=== PATIENT | female | born 1935 | race Hispanic/Latino ===

== ENCOUNTER 2019-02-01 08:09 | Outpatient (CLI) | payer MEDICARE, OTHER ==
[2019-02-01 09:04] LABS: Blood Urea Nitrogen 12 mg/dL (7-17)
--- NOTE | 2019-02-01 10:18 | Cat Scan Report ---
CT ABDOMEN AND PELVIS WITH CONTRAST INDICATION / CLINICAL INFORMATION: N28.89 RIGHT RENAL MASS. TECHNIQUE: Axial CT images were obtained through the abdomen and pelvis pre and post 100 cc Omnipaque 300 millig cornelius percent IV contrast. All CT scans at this location are performed using CT dose reduction for [place] by means of automated exposure control. COMPARISON: None available. FINDINGS: LOWER CHEST: No significant abnormality. LIVER: Several well-defined low density lesions are present in the liver largest measuring 3.4 cm, mo st consistent with cyst. GALLBLADDER: Previous cholecystectomy BILE DUCTS: No significant abnormality. PANCREAS: No significant abnormality. SPLEEN: No significant abnormality. ADRENALS: No significant abnormality. RIGHT KIDNEY and URETER: No significant abnormality. LEFT KIDNEY and URETER: No significant abnormality. STOMACH and SMALL BOWEL: No significant abnormality. COLON: Extensive diverticulosis of the sigmoid colon APPENDIX: Not identified PERITONEUM: No free fluid. No free air. No fluid collection. LYMPH NODES: No significant adenopathy. AORTA and ARTERIES: Atherosclerotic calcified plaque abdominal aorta is major branches IVC and VEINS: No significant abnormality. URINARY BLADDER: No significant abnormality. REPRODUCTIVE ORGANS: No significant abnormality. ADDITIONAL FINDINGS: None. SKELETAL SYSTEM: Diffuse degenerative changes lumbar spine IMPRESSION: 1. No evidence of renal mass 2. Hepatic cyst 3. Degenerative changes lumbar spine 4. Diverticulosis sigmoid colon Signer Name: Krishna Rodriguez MD Signed: 02/01/2019 10:14 AM Workstation Name: [id number]
== END 2019-02-01 08:10 | disposition home or self-care (01) ==
LOC: CT 08:09
PROVIDERS: ATTEND Internal Medicine
DX: N28.89 Other specified disorders of kidney and ureter (principal)
CPT/HCPCS: 36415; 74178; 82565; 84520; Q9967